=== PATIENT | female | born 1945 | race Caucasian/White ===

== ENCOUNTER → 2017-03-23 | Outpatient (CLI) | payer MEDICARE, OTHER ==
[~2017-03-23] MED LIST: ASPI81EC PO; BIOTIN1 MG; CALCA500CH; CHOL10002 PO; Combigan Eye Dro5 ML; Glucosamine Ch1 EAC3; HYDCHL25 PO; LEVSOD112 PO; LISI5 PO; METO25ER PO; Multivitamin1 EAC1; NAPR500; OLME20; POTCHL10ER PO; POTCHL20ER PO; SIMV10 PO; UBID10; Vitamin B Comple1 EA
[2017-03-23 14:14] LABS: Anion Gap 7 mmol/L (6-16); Blood Urea Nitrogen 9 mg/dL (8-24); Bun/Creatinine Ratio 13.3 (12.0-20.0); CO2, Blood 30 mmol/L (21-32); Calcium, Blood 8.6 mg/dL (8.5-10.1); Chloride, Blood 101 mmol/L (98-108); Creatinine, Blood 0.68 mg/dL (0.40-1.00); Glomerular Filtration Rate >60 (60-); Glucose, Blood 97 mg/dL (70-99); Potassium, Blood 4.6 mmol/L (3.5-5.5); Sodium, Blood 138 mmol/L (136-145)
[2017-03-23 14:40] LABS: Influenza A Negative (NEGATIVE); Influenza B Negative (NEGATIVE)
== END | disposition home or self-care (01) ==
LOC: LAB 13:10
PROVIDERS: Internal Medicine
DX: I10 Essential (primary) hypertension (principal); R09.89 Other specified symptoms and signs involving the circulatory and respiratory systems; R05 Cough
CPT/HCPCS: 80048; 87804

== ENCOUNTER 2018-04-03 21:37 | Emergency (ER) | payer MEDICARE, OTHER ==
[~2018-04-03] VITALS: Ht 162.6 cm; Wt 64.9 kg
[2018-04-03] MEDS ORDERED: METO25ER PO (22:01)
[2018-04-03] MEDS ORDERED: TIMOLOL MALEATE (22:03)
[2018-04-03] MEDS ORDERED: PROLENSA3 ML (22:03)
[2018-04-03] MEDS ORDERED: LOSA25 PO (22:03)
[2018-04-03] MEDS ORDERED: Avastin25 MG/ML (22:05)
[2018-04-03 22:22] LABS: BASOPHILS ABSOLUTE AUTO 0.07 K/mm3 (0.00-0.23); BASOPHILS PERCENT AUTO 1 % (0-2); EOSINOPHILS PERCENT AUTO 4 % (0-6); Hematocrit 49.9 % (33.0-51.0); Hemoglobin 16.7 g/dL (11.5-16.0); IMMATURE GRAN ABSOLUTE AUTO 0.01 K/mm3 (0.00-0.10); IMMATURE GRAN PERCENT AUTO 0 % (0-1); LYMPHOCYTES ABSOLUTE AUTO 3.01 K/mm3 (0.84-5.20); LYMPHOCYTES PERCENT AUTO 43 % (21-46); MONOCYTES ABSOLUTE AUTO 0.43 K/mm3 (0.16-1.47); MONOCYTES PERCENT AUTO 6 % (4-13); Mean Corpuscular HGB 30.3 pg (26.0-34.0); Mean Corpuscular HGB Conc 33.5 g/dL (31.5-36.5); Mean Corpuscular Volume 90 fL (80-100); Mean Platelet Volume 9.5 fL (9.1-12.4); NEUTROPHILS ABSOLUTE AUTO 3.13 K/mm3 (1.96-9.15); NEUTROPHILS PERCENT AUTO 45 % (41-73); Platelet Count 307 K/mm3 (150-400); RDW Coefficient Variation 12.3 % (11.7-14.2); RDW Standard Deviation 40.8 fL (35.1-46.3); Red Blood Cell Count 5.52 M/mm3 (3.80-5.20); White Blood Cell Count 6.95 K/mm3 (4.00-11.30)
[2018-04-03 22:39] LABS: Alanine Aminotransfer (ALT/SGP 29 U/L (12-78); Alk Phos 97 U/L (50-136); Anion Gap 8 mmol/L (6-16); Aspartate Aminotrans (AST/SGOT 16 U/L (12-37); Bilirubin, Total 0.3 mg/dL (0.1-1.0); Blood Urea Nitrogen 13 mg/dL (8-24); Bun/Creatinine Ratio 19.5 (12.0-20.0); CO2, Blood 28 mmol/L (21-32); Calcium, Blood 8.9 mg/dL (8.5-10.1); Chloride, Blood 102 mmol/L (98-108); Creatinine, Blood 0.67 mg/dL (0.40-1.00); Glomerular Filtration Rate >60 (60-); Glucose, Blood 125 mg/dL (70-99); Potassium, Blood 3.4 mmol/L (3.5-5.5); Sodium, Blood 138 mmol/L (136-145); Troponin I <0.015 ng/mL (0.000-0.040)
[2018-04-03] MEDS ORDERED: XARELTO10 MG PO (23:47)
== END 2018-04-04 01:18 | disposition home or self-care (01) ==
LOC: ER 21:37
PROVIDERS: Physician Assistant
DX: I48.91 Unspecified atrial fibrillation (principal); E87.6 Hypokalemia; E03.9 Hypothyroidism, unspecified; E78.00 Pure hypercholesterolemia, unspecified; I10 Essential (primary) hypertension; Z87.891 Personal history of nicotine dependence; Z79.899 Other long term (current) drug therapy; Z79.82 Long term (current) use of aspirin
CPT/HCPCS: 36415; 80053; 84443; 84484; 85025; 93005; 93010; 99285-25

== ENCOUNTER → 2018-08-20 | Outpatient (CLI) | payer MEDICARE, OTHER ==
[~2018-08-20] MED LIST changes: +Avastin25 MG/ML; +LOSA25 PO; +PROLENSA3 ML; +TIMOLOL MALEATE; +XARELTO10 MG PO
== END | disposition home or self-care (01) ==
LOC: LAB SHORT 08:07 → PLD 08:07
DX: M20.40 Other hammer toe(s) (acquired), unspecified foot (principal); M89.9 Disorder of bone, unspecified
CPT/HCPCS: 88304

== ENCOUNTER 2020-01-05 19:51 | Emergency (ER) | payer MEDICARE, OTHER ==
[~2020-01-05] VITALS: Ht 162.6 cm; Wt 64.9 kg
[~2020-01-05 19:51] MED LIST changes: +ACET325 PO; +METO25 PO; +METO50ER PO; +XARELTO20 MG PO
[2020-01-05 20:35] LABS: BASOPHILS ABSOLUTE AUTO 0.04 K/mm3 (0.00-0.23); BASOPHILS PERCENT AUTO 1 % (0-2); EOSINOPHILS ABSOLUTE AUTO 0.15 K/mm3 (0.00-0.68); EOSINOPHILS PERCENT AUTO 2 % (0-6); Hematocrit 49.4 % (33.0-51.0); Hemoglobin 16.4 g/dL (11.5-16.0); IMMATURE GRAN ABSOLUTE AUTO 0.01 K/mm3 (0.00-0.10); IMMATURE GRAN PERCENT AUTO 0 % (0-1); LYMPHOCYTES ABSOLUTE AUTO 2.22 K/mm3 (0.84-5.20); LYMPHOCYTES PERCENT AUTO 35 % (21-46); MONOCYTES ABSOLUTE AUTO 0.43 K/mm3 (0.16-1.47); MONOCYTES PERCENT AUTO 7 % (4-13); Mean Corpuscular HGB 29.3 pg (26.0-34.0); Mean Corpuscular HGB Conc 33.2 g/dL (31.5-36.5); Mean Corpuscular Volume 88 fL (80-100); Mean Platelet Volume 9.5 fL (9.1-12.4); NEUTROPHILS ABSOLUTE AUTO 3.49 K/mm3 (1.96-9.15); NEUTROPHILS PERCENT AUTO 55 % (41-73); Platelet Count 273 K/mm3 (150-400); RDW Coefficient Variation 12.8 % (11.7-14.2); RDW Standard Deviation 41.8 fL (35.1-46.3); White Blood Cell Count 6.34 K/mm3 (4.00-11.30)
[2020-01-05 21:04] LABS: Alanine Aminotransfer (ALT/SGP 20 U/L (12-78); Albumin, Blood 3.8 g/dL (3.4-5.0); Alk Phos 78 U/L (50-136); Anion Gap 8 mmol/L (6-16); Aspartate Aminotrans (AST/SGOT 18 U/L (12-37); Bilirubin, Total 0.4 mg/dL (0.1-1.0); Blood Urea Nitrogen 8 mg/dL (8-24); Bun/Creatinine Ratio 11.4 (12.0-20.0); CO2, Blood 30 mmol/L (21-32); Chloride, Blood 107 mmol/L (98-108); Globulin, Blood 3.7 g/dL (2.2-4.0); Glomerular Filtration Rate >60 (60-); Glucose, Blood 104 mg/dL (70-99); Potassium, Blood 3.1 mmol/L (3.5-5.5); Sodium, Blood 145 mmol/L (136-145); Total Protein, Blood 7.5 g/dL (6.4-8.2); Troponin I <0.015 ng/mL (0.000-0.040)
== END 2020-01-05 22:02 | disposition home or self-care (01) ==
LOC: ER 19:51
PROVIDERS: Emergency Medicine
DX: I48.91 Unspecified atrial fibrillation (principal); I10 Essential (primary) hypertension; E03.9 Hypothyroidism, unspecified; E78.00 Pure hypercholesterolemia, unspecified; Z79.01 Long term (current) use of anticoagulants; Z88.0 Allergy status to penicillin; Z88.6 Allergy status to analgesic agent; Z79.899 Other long term (current) drug therapy; Z87.891 Personal history of nicotine dependence
CPT/HCPCS: 36415; 71045; 80053; 84484; 85025; 93005; 93010; 96374; 99285-25

== ENCOUNTER → 2020-10-20 | Outpatient (CLI) | payer MEDICARE, OTHER ==
[2020-10-20 16:18] LABS: Source, Urine Clean Catch
[2020-10-20 16:25] LABS: Bacteria Not Seen /hpf; Red Blood Cells, Urine 50-100 /hpf (0-2); Squamous Epithelial Cells Few /hpf (Few); White Blood Cells, Urine Rare /hpf (0-5)
== END | disposition home or self-care (01) ==
LOC: LAB 16:16 → LAB SHORT 16:16
PROVIDERS: Student in an Organized Health Care Education/Training Program
DX: R31.9 Hematuria, unspecified (principal)
CPT/HCPCS: 81015; 87086

== ENCOUNTER → 2021-10-09 | Outpatient (CLI) | payer MEDICARE, OTHER ==
[~2021-10-09] MED LIST changes: +CIPR500 PO; +CYCL10; +GABA300 PO; +VICODIN HP 10-1 EAC1 PO
== END | disposition home or self-care (01) ==
LOC: LAB SHORT 15:43 → LAB 15:43
DX: N39.0 Urinary tract infection, site not specified (principal)
CPT/HCPCS: 87086

== ENCOUNTER 2021-10-11 00:30 | Emergency (ER) | payer MEDICARE, OTHER ==
[~2021-10-11] VITALS: Ht 162.6 cm; Wt 64.4 kg
[~2021-10-11 00:30] MED LIST changes: -CIPR500 PO; -CYCL10; -GABA300 PO; -VICODIN HP 10-1 EAC1 PO
[2021-10-11] MEDS ORDERED: VICODIN HP 10-1 EAC1 PO ×2 (04:11→07:52)
[2021-10-11] MEDS ORDERED: CYCL10 (04:12)
[2021-10-11] MEDS ORDERED: CIPR500 PO (04:13)
[2021-10-11] MEDS ORDERED: GABA300 PO (07:52)
== END 2021-10-11 08:42 | disposition home or self-care (01) ==
LOC: ER 00:30
DX: M62.830 Muscle spasm of back (principal); G62.9 Polyneuropathy, unspecified; E03.9 Hypothyroidism, unspecified; I10 Essential (primary) hypertension; Z88.0 Allergy status to penicillin; Z88.8 Allergy status to other drugs, medicaments and biological substances; Z79.899 Other long term (current) drug therapy; Z79.01 Long term (current) use of anticoagulants; Z87.891 Personal history of nicotine dependence
CPT/HCPCS: A9270

== ENCOUNTER 2023-03-13 07:47 | Day surgery (SDC) | payer MEDICARE, OTHER ==
[~2023-03-13] VITALS: Ht 162.6 cm; Wt 62.1 kg
[~2023-03-13 07:47] MED LIST changes: +CIPR500 PO; +CYCL10; +GABA300 PO; +VICODIN HP 10-1 EAC1 PO
[2023-03-13] MEDS ORDERED: XARELTO20 MG (08:04)
[2023-03-13] MEDS ORDERED: LOSA50 (08:18)
[2023-03-13] MEDS ORDERED: LOSA25 PO (08:18)
[2023-03-13] MEDS ORDERED: AMLO5 (08:19)
[2023-03-13 10:26] VITALS: BP 130/63
== END 2023-03-13 10:20 | disposition home or self-care (01) ==
LOC: ORSCSDS 07:47
PROVIDERS: Internal Medicine Gastroenterology
PROC: 0DBE8ZX Excision of Large Intestine, Via Natural or Artificial Opening Endoscopic, Diagnostic (ICD-10-PCS; principal; 2023-03-13 09:00)
PROC: 0DBK8ZX Excision of Ascending Colon, Via Natural or Artificial Opening Endoscopic, Diagnostic (ICD-10-PCS; principal; 2023-03-13 09:00)
PROC: 0DB58ZX Excision of Esophagus, Via Natural or Artificial Opening Endoscopic, Diagnostic (ICD-10-PCS; principal; 2023-03-13 09:00)
DX: K22.70 Barrett's esophagus without dysplasia (principal); R19.4 Change in bowel habit; D12.2 Benign neoplasm of ascending colon; Z86.010 Personal history of colon polyps; K57.30 Diverticulosis of large intestine without perforation or abscess without bleeding; Z80.0 Family history of malignant neoplasm of digestive organs; Z87.891 Personal history of nicotine dependence; Z79.899 Other long term (current) drug therapy
CPT/HCPCS: 88305; J2704; J7120

== ENCOUNTER 2024-05-01 08:37 | Day surgery (SDC) | payer MEDICARE, OTHER ==
[~2024-05-01] VITALS: Ht 160 cm; Wt 60.5 kg
[2024-05-01] VITALS (19 sets, daily range): BP systolic 90–165; BP diastolic 61–97
[~2024-05-01 08:37] MED LIST changes: +AMLO5 PO; +Acetaminophen 500 MG Tab PO SCH; +BROMFENAC SODI1.7 ML RIGHTEYE; -CHOL10002 PO; +CIDAFLEX TABLE1 EAC1 PO; +CeFAZolin Sodium 2,000 MG VIAL ONE; +CeFAZolin Sodium 2,000 MG in NS 100 ML IV SCH; +Chlorhexidine Mouth Care 15 ML UDC MT SCH; +Durezol5 ML RIGHTEYE; -Glucosamine Ch1 EAC3; +LOSA50 PO; +Lactated Ringer's 1,000 ML IV SCH; +MAGNESIUM OXID500 MG PO; -Multivitamin1 EAC1; +Multivitamin1 EAC1 PO; +OxyCODONE HCL 10 MG TABCR PO SCH; +PRESERVISION A1 EAC1 PO; +Ropivacaine 0.5% HCl/Pf 123.125 MG,EPINEPHrine HCL 0.25 MG,Ketorolac Tromethamine 15 MG... INFIL SCH; -TIMOLOL MALEATE; +TIMOLOL MALEATE5 ML RIGHTEYE; +Tranexamic Acid 100 ML IV SCH; +VITAMIN D350 MC3 PO; +Vancomycin HCL 1,000 MG in NS 250 ML IV SCH; +XARELTO20 MG
[2024-05-01] MEDS ORDERED: FentaNYL Citrate 50 MCG/ML 2 ML Injection ONE ×2 (08:38→13:35)
[2024-05-01] MEDS ORDERED: propofoL 40 ML IV ONE (08:38)
[2024-05-01] MEDS ORDERED: [UNRECOGNIZED DRUG - OTHER] RIGHTEYE (09:11)
--- NOTE | 2024-05-01 09:19 | NUR ---
Ambulatory in Day Surgery History, Chart, Medications and Allergies reviewed before start of procedure. Pre-Op teaching done. Pt verbalizes understanding.
[2024-05-01] MEDS ORDERED: Ropivacaine 0.5% HCl/Pf 123.125 MG,EPINEPHrine HCL 0.25 MG,Clonidine HCl/Pf 40 MCG in N... INFIL SCH (09:35)
[2024-05-01] MEDS ORDERED: propofoL 20 ML IV ONE ×2 (10:21→12:23)
[2024-05-01] MEDS ORDERED: Magnesium Hydroxide Conc 10 ML UDC PO PRN (10:25)
[2024-05-01] MEDS ORDERED: Metoclopramide HCl 5MG / ML 2ML Vial IV PRN (10:25)
[2024-05-01] MEDS ORDERED: Ondansetron 4 MG SoluTab MM PRN (10:25)
[2024-05-01] MEDS ORDERED: Ondansetron HCl 2 MG / ML 2ML Vial IV PRN (10:25)
[2024-05-01] MEDS ORDERED: OxyCODONE HCL 5 MG TAB PO PRN ×2 (10:25→10:30)
[2024-05-01] MEDS ORDERED: HYDROmorphone HCl 0.5 MG/0.5 ML SYR IV PRN (10:30)
[2024-05-01] MEDS ORDERED: Promethazine HCl 25 MG Tab PO PRN (10:30)
[2024-05-01] MEDS ORDERED: Lactated Ringer's 1,000 ML IV SCH (10:30)
[2024-05-01] MEDS ORDERED: Bisacodyl 10 MG Supp PR PRN (10:30)
[2024-05-01] MEDS ORDERED: DiphenhydrAMINE HCL 25 MG Cap PO PRN (10:30)
[2024-05-01] MEDS ORDERED: FLU VACC TS2024-25(6MOS UP)/PF 45 MCG/0.5 ML SYRINGE IM SCH (10:35)
--- NOTE | 2024-05-01 11:01 | NUR ---
PATIENT REMOVED TOOTH FLIPPER AND GLASSES AND PLACED IN PERSONAL BELONGINGS BAG.
[2024-05-01] MEDS ORDERED: Ketorolac 0.5% Opth Soln BTL RIGHTEYE SCH (13:00)
[2024-05-01] MEDS ORDERED: PrednisoLONE 1% Opth Susp 5 ML RIGHTEYE SCH (13:00)
[2024-05-01] MEDS ORDERED: Acetaminophen 500 MG Tab PO SCH (16:00)
--- NOTE | 2024-05-01 17:05 | NUR ---
ASSUMED CARE @1700 AOX4, CALL LIGHT IN REACH
[2024-05-01] MEDS ORDERED: Losartan Potassium 25 MG Tab PO SCH (18:00)
[2024-05-01] MEDS ORDERED: CeFAZolin Sodium 2,000 MG in NS 100 ML IV SCH (19:00)
[2024-05-01] MEDS ORDERED: Docusate Sodium 100 MG Cap PO SCH (21:00)
[2024-05-01] MEDS ORDERED: Timolol 0.25% Opth Soln 5 ml RIGHTEYE SCH (21:00)
[2024-05-01] MEDS ORDERED: Vancomycin HCL 1,000 MG in NS 250 ML IV SCH (22:00)
[2024-05-02 03:08] VITALS: BP 145/67
[2024-05-02 04:25] LABS: BASOPHILS ABSOLUTE AUTO 0.03 K/mm3 (0.00-0.23); BASOPHILS PERCENT AUTO 0 % (0-2); EOSINOPHILS ABSOLUTE AUTO 0.01 K/mm3 (0.00-0.68); EOSINOPHILS PERCENT AUTO 0 % (0-6); Hematocrit 37.6 % (33.0-51.0); Hemoglobin 12.8 g/dL (11.5-16.0); IMMATURE GRAN ABSOLUTE AUTO 0.03 K/mm3 (0.00-0.10); IMMATURE GRAN PERCENT AUTO 0 % (0-1); LYMPHOCYTES ABSOLUTE AUTO 1.65 K/mm3 (0.84-5.20); LYMPHOCYTES PERCENT AUTO 17 % (21-46); MONOCYTES ABSOLUTE AUTO 1.07 K/mm3 (0.16-1.47); MONOCYTES PERCENT AUTO 11 % (4-13); Mean Corpuscular Volume 88 fL (80-100); Mean Platelet Volume 9.4 fL (9.1-12.4); NEUTROPHILS ABSOLUTE AUTO 6.69 K/mm3 (1.96-9.15); NEUTROPHILS PERCENT AUTO 71 % (41-73); Platelet Count 224 K/mm3 (150-400); RDW Standard Deviation 41.3 fL (35.1-46.3); Red Blood Cell Count 4.27 M/mm3 (3.80-5.20); White Blood Cell Count 9.48 K/mm3 (4.00-11.30)
[2024-05-02 04:56] LABS: Bun/Creatinine Ratio 19.6 (12.0-20.0); Creatinine, Blood 0.56 mg/dL (0.40-1.00); Magnesium, Blood 1.8 mg/dL (1.6-2.4); Potassium, Blood 3.4 mmol/L (3.5-5.5)
--- NOTE | 2024-05-02 05:04 | NUR ---
[id number]- PATIENT ALERT AND ORIENTED X3. WAS HERE BUT WENT HOME. CALLS FOR ASSIST TO BR. UP WITH SBA, GAITBELT AND WALKER, DOES WELL. BULKY DRESSING C/D/I RT KNEE. SCUDS ON AT START OF SHIFT, PATIENT TOLERATED T/O NOC UNABLE TO ASSESS INCISION. NO SHADOWING NOTED ON DRESSING. POLAR PACK WITH ICE REPLACED T/O NOC. IV SL NOTED LT FA, PATENT AND FLUSHED T/O NOC AFTER IV ANTIBIOTICS. PATIENT CALLED FOR PAIN MEDS, OXYCODONE GIVEN PRN. HIGHEST PAIN LEVEL WAS 7/10. PATIENT RESTED WELL WHEN UNDISTURBED. SCHEDULED TYLENOL ALSO GIVEN. VOIDING WELL APROX 450 PER VOID, URINE YELLOW WITH STRONG SMELL. INFORMED PATIENT THAT IN AM WE WILL GET HER UP, DRESSED AND SITTING IN CHAIR PRIOR TO DAYSHIFT. VSS T/O SHIFT. WILL GIVE REPORT TO ONCOMING RN TAKING PATIENT.
[2024-05-02] MEDS ORDERED: Levothyroxine Sodium 0.112 MG Tab PO SCH (06:00)
[2024-05-02 07:32] VITALS: BP 164/70
[2024-05-02] MEDS ORDERED: Multivitamins 1 Tab PO SCH (09:00)
[2024-05-02] MEDS ORDERED: Losartan Potassium 50 MG Tab PO SCH (09:00)
[2024-05-02] MEDS ORDERED: Cholecalciferol 1000 Unit Tablet (=25MCG) PO SCH (09:00)
[2024-05-02] MEDS ORDERED: Linezolid 600 MG Tab PO SCH ×2 (09:00)
[2024-05-02] MEDS ORDERED: AmLODIPine Besylate 5 MG Tab PO SCH (09:00)
[2024-05-02] MEDS ORDERED: LINE600 PO ×2 (09:12→09:36)
[2024-05-02] MEDS ORDERED: OXYC5 PO ×2 (09:13→09:36)
[2024-05-02 11:33] VITALS: BP 161/64
--- NOTE | 2024-05-02 12:00 | NUR ---
DISCHARGE NOTE PT IS ALERT, FOLLOWING COMMANDS, AMBULATING 1 ASST W/ FWW AND GB. DRESSINGS C/D/I. R PEDAL PULSE PALPABLE, CAP REFILL 2 SECS. VSS, PT HYPERTENSIVE AT BASELINE. DISCHARGE INSTRUCTIONS REVIEWED W/ PT, COPY GIVEN. PT HAS PAIN MEDS AT HOME. DRESSING CHANGES GIVEN FOR HOME USE. PT DC'D VIA WC IN STABLE CONDITION W/ ALL BELONGINGS TO PRIVATE RIDE HOME.
[2024-05-02] MEDS ORDERED: Rivaroxaban 10 MG Tab PO SCH (17:00)
== END 2024-05-02 11:57 | disposition home or self-care (01) ==
LOC: ORSCMMR 08:37 → ORD 10:45 → ORSCMMR 10:45 → SURS 14:11 → ORSCMMR 05-02 11:57
PROVIDERS: Orthopaedic Surgery
PROC: 0SRC0J9 Replacement of Right Knee Joint with Synthetic Substitute, Cemented, Open Approach (ICD-10-PCS; principal; 2024-05-01 10:45)
DX: M17.11 Unilateral primary osteoarthritis, right knee (principal); I10 Essential (primary) hypertension; E03.9 Hypothyroidism, unspecified; I48.91 Unspecified atrial fibrillation; Z79.01 Long term (current) use of anticoagulants; Z79.899 Other long term (current) drug therapy
CPT/HCPCS: 36415; 73560-RT; 80048; 83735; 85025; 97110; 97116; 97161; 97530; A9270; C1713; C1776; J0171; J0690; J0735; J2405; J2704; J2795; J3010; J3370; J7050; J7120